=== PATIENT | female | born 1965 | race Caucasian/White ===

== ENCOUNTER 2017-01-24 12:03 | Inpatient (IN) | payer OTHER ==
[~2017-01-24] VITALS: Ht 162.6 cm; Wt 123.9 kg
[~2017-01-24 12:03] MED LIST: ADULT LOW DOSE81 M1 PO; ANORO ELLIPTA1 EACH IH; AUGMENTIN875 MG PO; Advair HFA 115/21 IH; BENADRYL25 MG PO; CEFTIN500 MG PO; CHANTIX1 MG PO; COUMADIN1 MG PO; DALIRESP500 MCG PO; HYDROCHLOROTHIA25 MG PO; Habitrol,Nicoderm CQ TD; IRON325 MG PO; LIDOCAINE700 MG TD; Levothroid,Synthroid PO; MILK OF MAGNESI10 ML PO; MORPHINE; MORPHINE SULFAT60 M1 PO; MS CONTIN100 MG PO; MS Contin PO; ONE DAILY WOME1 EACH PO; OXYCODONE HCL5 MG PO; PLAVIX75 MG PO; PRAVACHOL10 MG PO; PRILOSEC10 MG; PROTONIX40 MG PO; RELAFEN750 MG PO; SPIRIVA1 INHALATI IH; SYNTHROID150 MCG PO; TYLENOL REGULA325 MG PO; Tums PO; VENTOLIN HFA18 GM IH; XANAX1 MG PO; XANAX2 MG PO; XARELTO10 MG PO; Zantac PO; Zithromax PO; predniSONE PO
[2017-01-24 13:36] LABS: BASOPHIL COUNT 0.1 K/uL (0-0.1); EOSINOPHIL (%) 0.3 % (0-5); EOSINOPHIL COUNT 0.1 K/uL (0-0.3); HEMATOCRIT 46.1 % (36.0-46.0); IMMATURE GRANULOCYTE (%) 0.5 % (0.0-0.7); IMMATURE GRANULOCYTE COUNT 0.1 K/uL; INSTRUMENT ABS NEUTROPHIL CT 13.7 K/uL; LYMPHOCYTE COUNT 2.4 K/uL (1.0-2.8); MCH 29.6 PG (29.0-34.0); MCHC 32.8 G/DL (30.0-36.0); MCV 90.4 FL (83-99); MEAN PLAT.VOLUME 11.4 uM^3 (9.5-12.4); MONOCYTE (%) 4.7 % (3-12); MONOCYTE COUNT 0.8 K/uL (0-0.8); NEUTROPHIL (%) 80.1 % (45-76); NEUTROPHIL COUNT 13.7 K/uL (1.8-6.4); PLATELET COUNT 241 K/uL (156-360); RBC DIS.WIDTH-CV 13.8 % (11.8-14.6); RBC DIS.WIDTH-SD 45.7 % (39-53); WHITE BLOOD COUNT 17.1 K/uL (4.1-10.2)
[2017-01-24 13:54] LABS: CHLORIDE 98 mEq/L (99-109); POTASSIUM 3.5 mEq/L (3.7-5.4); SODIUM 137 mEq/L (136-147)
[2017-01-24 13:56] LABS: GLUCOSE 103 mg/dL (70-99)
[2017-01-24 13:57] LABS: ANION GAP 11 MEQ/L (2-14)
[2017-01-24 13:58] LABS: TOTAL BILIRUBIN 0.8 mg/dL (0.0-1.0)
[2017-01-24 14:00] LABS: ALKALINE PHOSPHATASE 73 IU/L (3-129); GFR ESTIMATE (CALCULATED) 39 mL/min/; TROP-I INTERPRETATION NEGATIVE; TROPONIN-I < 0.01 ng/mL (0.0-0.30)
[2017-01-24 14:01] LABS: UREA NITROGEN (BUN) 20 mg/dL (9-23)
[2017-01-24 17:00] VITALS: BP 151/87
[2017-01-24 19:43] VITALS: BP 130/67
[2017-01-24 23:37] VITALS: BP 109/60
[2017-01-25 03:20] VITALS: BP 122/80
[2017-01-25 07:27] VITALS: BP 122/68
[2017-01-25 07:55] LABS: HEMATOCRIT 43.5 % (36.0-46.0); MCV 90.8 FL (83-99); MEAN PLAT.VOLUME 10.9 uM^3 (9.5-12.4); PLATELET COUNT 220 K/uL (156-360); RBC DIS.WIDTH-CV 13.9 % (11.8-14.6); RBC DIS.WIDTH-SD 46.7 % (39-53); RED BLOOD COUNT 4.79 M/uL (3.80-5.20); WHITE BLOOD COUNT 14.2 K/uL (4.1-10.2)
[2017-01-25 08:20] LABS: ANION GAP 11 MEQ/L (2-14); CHLORIDE 97 MEQ/L (99-109); GFR ESTIMATE (CALCULATED) 50 mL/min/; GLUCOSE 154 mg/dL (70-99); SAMPLE HEMOLYSIS CHECK 0; SAMPLE ICTERIC CHECK 0; SAMPLE LIPEMIA CHECK 0; SODIUM 137 MEQ/L (136-147); UREA NITROGEN (BUN) 17 mg/dL (9-23)
[2017-01-25] MEDS ORDERED: PREDNISONE10 MG PO (13:40)
[2017-01-25] MEDS ORDERED: AZITHROMYCIN500 M1 PO (13:40)
[2017-01-25] MEDS ORDERED: PREDNISONE20 MG PO (13:40)
[2017-01-25] MEDS ORDERED: ADVAIR HFA120 INHAL1 IH (13:40)
[2017-01-25] MEDS ORDERED: SYNTHROID100 MCG PO (13:41)
== END 2017-01-25 15:16 | disposition home or self-care (01) | DRG 191 ==
LOC: EME 12:03 → EXP 12:03 → EDOF 16:08 → 2EAST 16:08
PROVIDERS: Internal Medicine; Physician Assistant
DX: J44.1 Chronic obstructive pulmonary disease with (acute) exacerbation (principal); E89.0 Postprocedural hypothyroidism; G89.29 Other chronic pain; M54.9 Dorsalgia, unspecified; G47.00 Insomnia, unspecified; F17.210 Nicotine dependence, cigarettes, uncomplicated; E66.9 Obesity, unspecified; Z68.42 Body mass index [BMI] 45.0-49.9, adult; Z79.891 Long term (current) use of opiate analgesic; Z86.73 Personal history of transient ischemic attack (TIA), and cerebral infarction without residual deficits; Z91.14 Patient's other noncompliance with medication regimen; Z88.1 Allergy status to other antibiotic agents; Z96.653 Presence of artificial knee joint, bilateral
CPT/HCPCS: 71020; 80048; 80053; 84439; 84443; 84484; 85025; 85027; 87040; 93005; 94640; 94640 76; 94799; 99202; 99281; 99285; J0456; J1650; J2405; J2930; J7030